=== PATIENT | female | born 1950 | race Caucasian/White ===

== ENCOUNTER 2019-12-15 11:07 | Day surgery (SDC) | payer MEDICARE ==
[~2019-12-15 11:07] MED LIST: Buffered Lidocaine 1% SYRIN* 1 ML/SYRINGE INTRADERM ONE; Lactated Ringers 1000 ML Bag* 1,000 ML IV SCH
[2019-12-15] MEDS ORDERED: Buffered Lidocaine 1% SYRIN* 1 ML/SYRINGE INTRADERM ONE (11:32)
[2019-12-15] MEDS ORDERED: Benzocaine/Butamben/Tetracain (CETACAINE - SINGLE USE) 5 gm TOPICAL ONE (12:58)
[2019-12-15] MEDS ORDERED: Succinylcholine* 20 MG/ML 10 ML VIAL ONE (13:26)
[2019-12-15] MEDS ORDERED: Glycopyrrolate IV* 0.2 MG/ML 1 ML VIAL ONE (13:26)
[2019-12-15] MEDS ORDERED: fentaNYL* 50 MCG/ML 2 ML VIAL (100 MCG VIAL) ONE (13:27)
[2019-12-15] MEDS ORDERED: Rocuronium* 10 MG/ML VIAL ONE (13:38)
[2019-12-15] MEDS ORDERED: Phenylephrine 40 MCG/ML SYRINGE ONE ×2 (13:39→14:05)
[2019-12-15] MEDS ORDERED: EPHEDrine (Pressors)* 50 MG/ML VIAL ONE (13:45)
[2019-12-15] MEDS ORDERED: Sugammadex * 200 MG/2 ML VIAL IV PUSH ONE (14:33)
[2019-12-15] MEDS ORDERED: Levalbuterol 1.25MG/0.5ML NEB ONE (14:52)
[2019-12-15] MEDS ORDERED: Acetaminophen IV 1GM/100ML * 1,000 MG/100 ML VIAL IVPB ONE (14:57)
[2019-12-15] MEDS ORDERED: Naloxone* 0.4 MG/ML 1 ML VIAL IV PRN (14:57)
[2019-12-15] MEDS ORDERED: Ondansetron INJ* 2 MG/ML VIAL IV PRN (14:57)
[2019-12-15 15:55] VITALS: BP 120/61
--- NOTE | 2019-12-15 16:43 | BRIEFOPN ---
Brief Operative/Procedure Note - Operation Details Pre-Op Diagnosis: Lt hilar mass and endobronchial narrowing Post-Op Diagnosis: No metastatic disease in lymph nodes Procedures: Bronchoscopy/EBUS Surgeon(s)/Proceduralists: Aimee Anesthesia: GA Estimated Blood Loss: Negligable Findings: No endobronchial lesions. No metastatic disease in R4, station 7, L4, and lt hilar mass Specimen(s)/Culture(s) Description: FNA from above nodes Complications: None
--- NOTE | 2019-12-15 17:00 | PRO ---
BRONCHOSCOPY REPORT: DATE OF PROCEDURE: 12/15/19 PROCEDURE PERFORMED: Bronchoscopy with endobronchial ultrasound-guided fine needle aspiration of mediastinal and hilar nodes. ANESTHESIA: General anesthesia. DESCRIPTION OF PROCEDURE: Informed consent was obtained from the patient prior to the procedure after all the risks and benefits were thoroughly explained. The patient was intubated with 8.5 endotracheal tube. A disposable bronchoscope was utilized for airway inspection. No endobronchial lesions were noted. Thick secretions were noted on both sides and were suctioned. Bronchoscope was then withdrawn and EBUS bronchoscope was inserted. R4 was minimally enlarged and was sampled with 1 pass. Rapid on-site evaluation revealed lymphatic tissue. Station 7 was sampled with 1 pass. Rapid on- site evaluation revealed lymphatic tissue with no malignant cells. L4 was then sampled with 2 passes. Rapid on-site evaluation revealed lymphatic tissue with no malignant cells. Left hilar area was found to be narrowed. Five passes were performed from that area, which revealed lymphatic tissue with no malignant cells. Bronchoscope was then withdrawn and disposable bronchoscope was reinserted for airway inspection. No significant bleeding was noted. Bronchoscope was then withdrawn. The patient tolerated the procedure well. The patient was extubated and seen in Recovery in optimal condition. [id number]/[facility] #: [id number] [facility]
== END 2019-12-15 16:15 | disposition home or self-care (01) ==
LOC: OR 11:07
PROVIDERS: ATTEND Internal Medicine
DX: J98.4 Other disorders of lung (principal); R06.02 Shortness of breath; J44.9 Chronic obstructive pulmonary disease, unspecified; R09.02 Hypoxemia; C34.90 Malignant neoplasm of unspecified part of unspecified bronchus or lung; N18.2 Chronic kidney disease, stage 2 (mild); I12.9 Hypertensive chronic kidney disease with stage 1 through stage 4 chronic kidney disease, or unspecified chronic kidney disease; E11.9 Type 2 diabetes mellitus without complications; Z79.4 Long term (current) use of insulin; F41.8 Other specified anxiety disorders; I50.9 Heart failure, unspecified; Z88.0 Allergy status to penicillin; E78.5 Hyperlipidemia, unspecified; Z79.84 Long term (current) use of oral hypoglycemic drugs; Z87.891 Personal history of nicotine dependence
CPT/HCPCS: 88172; 88173; 88177; 88305; A9270-GY; J0330; J3010